=== PATIENT | female | born 1955 | race African-American/Black ===

== ENCOUNTER 2017-04-20 09:44 | Inpatient (IN) | payer OTHER, MEDICARE ==
[~2017-04-20] VITALS: Ht 160 cm; Wt 93.4 kg
[~2017-04-20 09:44] MED LIST: 1-ME1LIQ OR; ALBU17I INH; FOSI20TA PO; OMEP20TA OR; SIMV40; VENTAER INH
[2017-04-20] MEDS ORDERED: CHLORHEXIDINE GLUCONATE 4% SOLN 120 ML BTL TOPICAL SCH (10:30)
[2017-04-20] MEDS ORDERED: POVIDONE IODINE 5% (ANTISEPSIS KIT) 4 APPLICATIONS EACH NARE PRN (10:30)
[2017-04-20] MEDS ORDERED: METOPROLOL TARTRATE 25 MG TAB PO PRN (10:30)
[2017-04-20] MEDS ORDERED: VANCOMYCIN 1000 MG/NS 250 ML (for <70 kg) IV SCH ×2 (10:30)
[2017-04-20] MEDS ORDERED: ceFAZolin 2 GM PREMIX 50 ML IV SCH (10:30)
[2017-04-20] MEDS ORDERED: LACTATED RINGER'S 1000 ML IV PRN (10:30)
[2017-04-20] MEDS ORDERED: CHLORHEXIDINE GLUCONATE 2 % 1 PACK (2 CLOTHS) TOPICAL PRN (10:30)
[2017-04-20] MEDS ORDERED: SODIUM CHLORID 0.9% 500 ML IV PRN (10:30)
[2017-04-20] MEDS ORDERED: ROPIVACAINE PERI-ARTICULAR INJECTION. P-ARTICULR SCH ×5 (11:00)
[2017-04-20] MEDS ORDERED: MELO7.5T27 PO (11:06)
[2017-04-20] MEDS ORDERED: IBUP-1129 PO (11:06)
[2017-04-20] MEDS ORDERED: MAGN400T24 PO (11:06)
[2017-04-20] MEDS ORDERED: OXYB5TAB8 PO (11:06)
[2017-04-20] MEDS ORDERED: PRED5TAB PO (11:06)
[2017-04-20] MEDS ORDERED: LACTATED RINGER'S 1000 ML INJ 1,000 ML IV ONE (12:00)
[2017-04-20] MEDS ORDERED: ONDANSETRON HCL 4 MG/2 ML VIAL IV ONE (12:00)
[2017-04-20] MEDS ORDERED: ceFAZolin INJ 1,000 MG VIAL IV ONE (12:00)
[2017-04-20] MEDS ORDERED: DEXAMETHASONE SOD PHOS 4 MG/ML VIAL IV ONE (12:00)
[2017-04-20] MEDS ORDERED: GLYCOPYRROLATE 1 MG/5 ML SYRINGE IV PUSH ONE (12:00)
[2017-04-20] MEDS ORDERED: NEOSTIGMINE 5 MG/5 ML SYRINGE IV PUSH ONE (12:00)
[2017-04-20] MEDS ORDERED: PROPOFOL 200 MG/20 ML AMP IV ONE (12:00)
[2017-04-20] MEDS ORDERED: LIDOCAINE HCL 1% PF 5 ML SYRINGE OTHER ONE (12:00)
[2017-04-20] MEDS ORDERED: ROCURONIUM INJ 50 MG/5 ML SYRINGE IV PUSH ONE (12:00)
[2017-04-20] MEDS ORDERED: GENTAMICIN SULFATE 80 MG/2 ML VIAL ONE (12:11)
[2017-04-20] MEDS ORDERED: MORPHINE SULFATE 4 MG/ML INJ ONE (12:24)
[2017-04-20] MEDS ORDERED: fentaNYL CITRATE 250 MCG/5 ML AMP ONE (12:24)
[2017-04-20] MEDS ORDERED: ACETAMINOPHEN 1000 MG/100 ML 100 ML IV ONE ×2 (12:24→20:00)
[2017-04-20] MEDS ORDERED: BUPIVACAINE HCL PF 0.5% 30 ML VIAL ONE (12:37)
[2017-04-20] MEDS ORDERED: MIDAZOLAM HCL 2 MG/2 ML VIAL ONE (12:38)
[2017-04-20] MEDS ORDERED: APREPITANT 40 MG CAP ONE (12:58)
[2017-04-20] MEDS: LACTATED RINGER'S 1000 ML INJ 1,000 ML IV SCH (15:06)
[2017-04-20] MEDS ORDERED: DO NOT ADM ANY ANTICOAGULANT DRUGS PRN (15:08)
--- NOTE | 2017-04-20 15:08 | HHI.PR ---
Immediate Post Op Note Procedure Date: Apr 20, 2017 Pre Op Diagnosis: R Knee severe OA,RA,genu valgus deformity Post Op Diagnosis: Same Surgeon: Russ Bloom MD Razor Grinder(s): Radha Spears PA-C Procedure: R TKR Complications: None Specimen(s) removed: None Estimated blood loss: 50cc Anesthesia: General, Regional Block, Local Drains: Hemovac Patient to: PACU Patient Condition: Good Implant/Devices: SEE IMPLANT LOG (if applicable) Date/Time of Procedure: SEE SURGICAL CARE RECORD Russ Bloom MD Apr 20, 2017 15:08
[2017-04-20] MEDS ORDERED: WALKER WHEELS/F1 MIS (15:14)
[2017-04-20] MEDS ORDERED: CPMMACHINE (15:14)
[2017-04-20] MEDS ORDERED: oxyCODONE/ACETAMINOPHEN 7.5 MG/325 MG TAB PO PRN ×2 (15:15)
[2017-04-20] MEDS ORDERED: ALUMINUM/MAGNESIUM/SIMETH 30 ML CUP PO PRN (15:15)
[2017-04-20] MEDS ORDERED: Post-op Orders (for Pharmacy) XX ONE (15:15)
--- NOTE | 2017-04-20 16:30 | MP ---
cc: Russ Bloom MD DATE OF OPERATION: 04/20/2017 PREOPERATIVE DIAGNOSIS: Right knee severe tricompartment osteoarthritis, genu valgus deformity. POSTOPERATIVE DIAGNOSIS: Right knee severe tricompartment osteoarthritis, genu valgus deformity. PROCEDURE: Right total knee arthroplasty. SURGEON: Russ Bloom MD PIPE SUPERVISOR: Radha Spears PA-C ANESTHESIA: General, regional block. COMPLICATIONS: None. ESTIMATED BLOOD LOSS: 50 mL. DRAINS: 2. TOURNIQUET TIME: 54 minutes at 275 mmHg. CONDITION: Stable. PLAN OF ACTIVITY: Per orders. PROCEDURE: My kindergarten teacher assistant, Radha Spears, was present for the entire surgical case. She was medically necessary for the entire case because of the complexity of the case and to facilitate the performance of the procedure and with the retractors, trial implants, permanent implants including bone cement. Patient brought in the operating room, had satisfactory anesthesia by Dr. Alvarado, department of anesthesia. The right lower extremity was prepped and draped in usual sterile manner. The extremity was exsanguinated by elevation and tourniquet placed to 275 mmHg. A small anterior exposure to the was made. Paramedian capsulotomy was performed. Patient was found to have significant synovitis to the knee with severe tricompartment osteoarthritis. The remaining portions of the medial and lateral meniscus were removed. Prepatellar fat pad was excised. The anterior cruciate ligament was resected and the posterior cruciate ligament was preserved. Using the Biomet Phat[employer]ise[employer] total knee arthroplasty system, IM guide was used for the distal femur cuts. This was 5 degrees of valgus to accept a 62.5 mm femoral component. Extramedullary guide was used for the tibia and this was to accept a 71 mm tibial component. The undersurface of the patella was removed and this was to accept a 31 mm 3-pronged patellar prosthesis. Patient found to have satisfactory balance in both flexion and extension with a 12 mm insert. All trial components were removed. Preparation for cementing was made. This was 2 packages of Palacos bone cement. First, the tibial component was cemented, followed by the femoral component, then the patellar component. When all excess bone cement was removed, the bone cement was allowed to harden for 11 minutes. A 12 x 71 mm polyethylene plastic was used, in which it was "cupped". Again, patient was found to have excellent range of motion range of motion and satisfactory stability of both flexion and extension gaps. The knee was irrigated with 3000 mL of sterile saline antibiotic solution. Wound itself was dry. The tourniquet was deflated. All bleeders were coagulated. The knee was irrigated with local anesthesia prior to the tourniquet coming down. The medication was provided by the department of pharmacy. The lateral retinacular release was performed. The patella was found to track well within the patellofemoral compartment with the "no thumbs technique". The extension mechanism was repaired using multiple interrupted #2 Ti-Cron, subcutaneous tissue later with 0 Vicryl and 3-0 Vicryl. Skin was approximated with skin jabier. Sterile dressings were applied. Patient tolerated the procedure well, went to recovery room in stable and satisfactory condition. MD KENYATTA Cano/INÉS , 02:55 PM , 04:29 PM BRANDI
--- NOTE | 2017-04-20 17:00 | RADRPT ---
EXAM DATE/TIME: 04/20/2017 15:19 [place] COMPARISON: No previous studies available for comparison. INDICATIONS : Post op right knee. MEDICAL HISTORY : None. SURGICAL HISTORY : None. ENCOUNTER: Initial ACUITY: 1 day PAIN SCORE: Non-responsive. LOCATION: Right knee. FINDINGS: Total knee arthroplasty is present. Hardware is intact. Alignment is anatomic. Surgical drains are no bravo. Skin jabier are present ventrally. CONCLUSION: Satisfactory post right TKA Yogesh Wilson MD on April 20, 2017 at 16:59 Board Certified Radiologist. This report was verified electronically.
[2017-04-20 18:00] VITALS: BP 127/68; PULSE 72; RESP 18; TEMP 96.6; O2SAT 96
[2017-04-20] MEDS ORDERED: MORPHINE SULFATE 8 MG/ML INJ IV PUSH PRN (18:00)
[2017-04-20 20:00] VITALS: BP 129/75; PULSE 80; RESP 15; TEMP 97.5; O2SAT 94
[2017-04-20] MEDS ORDERED: ZOLPIDEM TARTRATE 5 MG TAB PO PRN (21:00)
[2017-04-20] MEDS: LISINOPRIL 20 MG TAB PO SCH (21:11)
[2017-04-20] MEDS: predniSONE 5 MG TAB PO SCH (21:11)
[2017-04-20] MEDS: OXYBUTYNIN CHLORIDE 5 MG TAB PO SCH (21:11)
[2017-04-20] MEDS: ASPIRIN EC 81 MG TABEC PO SCH (21:19)
[2017-04-21] VITALS: BP 106/66; PULSE 73; RESP 15; TEMP 97.8; O2SAT 97
[2017-04-21] MEDS: LACTATED RINGER'S 1000 ML INJ 1,000 ML IV SCH (03:36)
[2017-04-21 06:05] LABS: HEMATOCRIT 30.4 % (35.0-46.0); HEMOGLOBIN 10.2 GM/DL (11.6-15.3)
--- NOTE | 2017-04-21 07:01 | PD.ORT.PN ---
Subjective Subjective Remarks POD#1 R TKR No sob,chest pain No c/o pain Explained operative findings to patient and answered multiple questions Objective Vitals Vital Signs Date Time Temp Pulse Resp B/P (MAP) Pulse Ox O2 Delivery O2 Flow Rate FiO2 04/21/17 00:00 97.8 73 15 106/66 (79) 97 04/20/17 21:12 18 04/20/17 20:00 97.5 80 15 129/75 (93) 94 04/20/17 18:00 96.6 72 18 127/68 (87) 96 04/20/17 17:30 97.6 72 20 146/69 (94) 95 Nasal Cannula 2 04/20/17 17:00 72 20 146/69 (94) 95 Nasal Cannula 2 04/20/17 16:00 64 20 148/80 (102) 95 Nasal Cannula 2 04/20/17 15:45 64 20 148/82 (104) 100 Nasal Cannula 2 04/20/17 15:30 67 20 152/75 (100) 100 Nasal Cannula 2 04/20/17 15:15 67 20 157/75 (102) 100 Nasal Cannula 2 04/20/17 15:07 97.6 74 20 143/77 (99) 100 Nasal Cannula 2 04/20/17 11:47 100 Nasal Cannula 2 04/20/17 10:47 97.7 68 18 142/68 (92) 100 I/O 04/20/17 04/20/17 04/20/17 04/21/17 04/21/17 04/21/17 07:00 15:00 23:00 07:00 15:00 23:00 Intake Total 2600 ml 100 ml Output Total 3400 ml 130 ml Balance -800 ml -30 ml Intake Oral 500 ml IV Total 2100 ml 100 ml Output Urine Total 350 ml Drainage Total 130 ml Estimated Blood Loss 50 ml Other 3000 ml # Voids 3 Result Diagram: 04/21/17 0528 Imaging Last 24 hours Impressions Knee X-Ray 04/20/17 1506 Signed Impressions: Service Date/Time: Thursday, April 20, 2017 15:19 - CONCLUSION: Satisfactory post right TKA Yogesh Wilson MD Objective Remarks N/V intact Dressings dry Neg marco a's;no calf tenderness Assessment & Plan Assessment and Plan Ortho stable PT,Rehab Aspirin EC 81 mg BID x 4 weeks TEDS for DVT prophylaxsis D/C to SNF tomorrow Russ Bloom MD Apr 21, 2017 07:01
[2017-04-21] MEDS: LISINOPRIL 20 MG TAB PO SCH ×2 (07:30→20:46)
[2017-04-21] MEDS: predniSONE 5 MG TAB PO SCH ×2 (07:30→20:46)
[2017-04-21] MEDS: ASPIRIN EC 81 MG TABEC PO SCH ×2 (07:30→20:46)
[2017-04-21] MEDS: PANTOPRAZOLE SOD 20 MG DELAYED RELEASE TAB PO SCH (07:30)
[2017-04-21] MEDS: OXYBUTYNIN CHLORIDE 5 MG TAB PO SCH ×2 (07:30→20:46)
[2017-04-21] MEDS: PRAVASTATIN SOD 80 MG TAB PO SCH (07:30)
[2017-04-21 08:00] VITALS: BP 108/60; PULSE 71; RESP 17; TEMP 96.8; O2SAT 97
[2017-04-21 08:25] VITALS: O2SAT 98
[2017-04-21] MEDS ORDERED: [UNRECOGNIZED DRUG - OTHER] SCH (09:00)
[2017-04-21] MEDS ORDERED: METHYL SCH (09:00)
[2017-04-21] MEDS: MAGNESIUM OXIDE 400 MG TAB PO SCH (11:57)
[2017-04-21 12:04] VITALS: BP 108/67; PULSE 93; RESP 18; TEMP 98.3; O2SAT 97
[2017-04-21 16:00] VITALS: BP 114/82; PULSE 98; RESP 19; TEMP 97.2; O2SAT 99
[2017-04-21 20:00] VITALS: BP 129/82; PULSE 86; RESP 20; TEMP 98.4; O2SAT 97
[2017-04-22] VITALS (8 sets, daily range): BP systolic 121–155; BP diastolic 72–98; PULSE 77–90; RESP 16–18; TEMP 95.6–100.4; O2SAT 95–99
[2017-04-22] MEDS: LACTATED RINGER'S 1000 ML INJ 1,000 ML IV SCH ×2 (04:36→17:06)
--- NOTE | 2017-04-22 07:37 | PD.ORT.PN ---
Subjective Subjective Remarks pt complains of post op knee soreness Objective Vitals Vital Signs Date Time Temp Pulse Resp B/P (MAP) Pulse Ox O2 Delivery O2 Flow Rate FiO2 04/22/17 04:00 98.6 90 16 139/74 (95) 95 04/22/17 00:00 98.6 90 17 121/72 (88) 95 04/21/17 20:00 98.4 86 20 129/82 (98) 97 04/21/17 16:00 97.2 98 19 114/82 (93) 99 04/21/17 12:04 98.3 93 18 108/67 (81) 97 04/21/17 08:25 98 21 04/21/17 08:00 96.8 71 17 108/60 (76) 97 I/O 04/21/17 04/21/17 04/21/17 04/22/17 04/22/17 04/22/17 07:00 15:00 23:00 07:00 15:00 23:00 Intake Total 400 ml 1200 ml 480 ml Output Total 130 ml 5 ml 60 ml Balance 270 ml 1195 ml -60 ml 480 ml Intake Oral 300 ml 1200 ml 480 ml IV Total 100 ml Output Urine Total 5 ml Drainage Total 130 ml 60 ml # Voids 4 2 # Bowel Movements 0 0 Result Diagram: 04/21/17 0528 Imaging Last 24 hours Impressions Knee X-Ray 04/20/17 1506 Signed Impressions: Service Date/Time: Thursday, April 20, 2017 15:19 - CONCLUSION: Satisfactory post right TKA Yogesh Wilson MD Objective Remarks right knee dressings dry and intact N/V intact Neg marco a's, no calf tenderness Assessment & Plan Assessment and Plan POD # 2 s/p R TKA Ortho stable PT,Rehab Aspirin EC 81 mg BID x 4 weeks TEDS for DVT prophylaxsis bowel regimen D/C to SNF today Radha Spears Apr 22, 2017 07:37
[2017-04-22] MEDS: OXYBUTYNIN CHLORIDE 5 MG TAB PO SCH ×2 (08:52→21:02)
[2017-04-22] MEDS: predniSONE 5 MG TAB PO SCH ×2 (08:52→21:02)
[2017-04-22] MEDS: ASPIRIN EC 81 MG TABEC PO SCH ×2 (08:52→21:02)
[2017-04-22] MEDS: PRAVASTATIN SOD 80 MG TAB PO SCH (08:52)
[2017-04-22] MEDS: LISINOPRIL 20 MG TAB PO SCH ×2 (08:52→21:02)
[2017-04-22] MEDS: PANTOPRAZOLE SOD 20 MG DELAYED RELEASE TAB PO SCH (08:52)
[2017-04-22] MEDS: MAGNESIUM HYDROXIDE SUSP 30 ML CUP PO SCH ×2 (08:53→21:02)
[2017-04-22] MEDS: MAGNESIUM OXIDE 400 MG TAB PO SCH (10:57)
[2017-04-22] MEDS: ACETAMINOPHEN 500 MG CPLT PO PRN (22:19)
[2017-04-23] MEDS: LACTATED RINGER'S 1000 ML INJ 1,000 ML IV SCH (05:36)
[2017-04-23] MEDS: ACETAMINOPHEN 500 MG CPLT PO PRN ×2 (05:43→11:23)
[2017-04-23 08:00] VITALS: BP 118/71; PULSE 80; RESP 17; TEMP 97.2; O2SAT 98
[2017-04-23] MEDS: PANTOPRAZOLE SOD 20 MG DELAYED RELEASE TAB PO SCH (08:09)
[2017-04-23] MEDS: ASPIRIN EC 81 MG TABEC PO SCH (08:09)
[2017-04-23] MEDS: predniSONE 5 MG TAB PO SCH (08:09)
[2017-04-23] MEDS: PRAVASTATIN SOD 80 MG TAB PO SCH (08:09)
[2017-04-23] MEDS: OXYBUTYNIN CHLORIDE 5 MG TAB PO SCH (08:09)
[2017-04-23] MEDS: LISINOPRIL 20 MG TAB PO SCH (08:09)
[2017-04-23] MEDS: MAGNESIUM HYDROXIDE SUSP 30 ML CUP PO SCH (08:10)
[2017-04-23] MEDS ORDERED: LACTULOSE SYRUP 20 GM/30 ML CUP PO ONE (08:30)
[2017-04-23] MEDS: MAGNESIUM OXIDE 400 MG TAB PO SCH (11:22)
[2017-04-23] MEDS ORDERED: PERC7.5T13 PO (11:43)
[2017-04-23] MEDS ORDERED: ASPI-516 CHEW (11:44)
[2017-04-23 12:06] VITALS: BP 123/73; PULSE 80; RESP 18; TEMP 97.9; O2SAT 98
[2017-04-23 12:30] VITALS: RESP 18
--- NOTE | 2017-04-23 13:59 | PD.ORT.PN ---
Subjective Subjective Remarks POD#3 R TKR patient doing well ready to be discharged to [facility] today Objective Vitals Vital Signs Date Time Temp Pulse Resp B/P (MAP) Pulse Ox O2 Delivery O2 Flow Rate FiO2 04/23/17 12:30 18 04/23/17 12:06 97.9 80 18 123/73 (90) 98 04/23/17 08:00 97.2 80 17 118/71 (87) 98 04/22/17 23:20 98.5 88 18 150/79 (102) 97 04/22/17 22:17 142/81 (101) 04/22/17 20:50 100.4 88 18 155/98 (117) 95 04/22/17 16:00 97.8 84 17 142/80 (100) 97 I/O 04/22/17 04/22/17 04/22/17 04/23/17 04/23/17 04/23/17 07:00 15:00 23:00 07:00 15:00 23:00 Intake Total 480 ml 480 ml 480 ml 240 ml Balance 480 ml 480 ml 480 ml 240 ml Intake Oral 480 ml 480 ml 480 ml 240 ml # Voids 2 4 3 2 # Bowel Movements 0 0 0 0 Result Diagram: 04/21/17 0528 Imaging Last 24 hours Impressions Knee X-Ray 04/20/17 1506 Signed Impressions: Service Date/Time: Thursday, April 20, 2017 15:19 - CONCLUSION: Satisfactory post right TKA Yogesh Wilson MD Objective Remarks right knee dressings dry and intact N/V intact Neg marco a's, no calf tenderness Assessment & Plan Assessment and Plan POD # 3 s/p R TKA Ortho stable PT,Rehab Aspirin EC 81 mg BID x 4 weeks TEDS for DVT prophylaxsis D/C to [facility] today Russ Bloom MD Apr 23, 2017 13:59
== END 2017-04-23 17:42 | DRG 470 ==
LOC: HSDI 09:44 → N06B 17:54
PROVIDERS: ADMIT Orthopaedic Surgery Orthopaedic Surgery of the Spine; ATTEND Orthopaedic Surgery Orthopaedic Surgery of the Spine
PROC: 3E0T3BZ Introduction of Anesthetic Agent into Peripheral Nerves and Plexi, Percutaneous Approach (ICD-10-PCS; 2017-04-20)
PROC: 0SRC0J9 Replacement of Right Knee Joint with Synthetic Substitute, Cemented, Open Approach (ICD-10-PCS; principal; 2017-04-20 13:02)
DX: M17.11 Unilateral primary osteoarthritis, right knee (principal); M06.9 Rheumatoid arthritis, unspecified; E78.5 Hyperlipidemia, unspecified; M21.061 Valgus deformity, not elsewhere classified, right knee; M65.861 Other synovitis and tenosynovitis, right lower leg; K21.9 Gastro-esophageal reflux disease without esophagitis; J45.909 Unspecified asthma, uncomplicated
CPT/HCPCS: 73560; 85014; 85018; 86850; 86900; 86901; 86920; 94150; C1776; J0131; J0690; J0735; J1100; J1580; J1885; J2250; J2270; J2405; J2710; J2795; J3010; J3370; J7050; J7120; J7512; J8501; L1830

== ENCOUNTER 2017-11-09 09:51 | Inpatient (IN) ==
[2017-11-09] MEDS ORDERED: Metoprolol Tartrate 25 MG Tablet PO ONE (10:33)
[2017-11-09] MEDS ORDERED: Chlorhexidine Gluconate 2% 1 Pack (2 Cloths) TOPICAL ONE (10:33)
[2017-11-09] MEDS ORDERED: Sodium Chlor 0.9% Inj 73.07 ML, Ropivacaine 0.5% PF Inj 24.63 ML, Ketorolac Inj 30 MG, ... P-ARTICULR SCH ×5 (10:45)
[2017-11-09] MEDS ORDERED: Chlorhexidine 4% Topical 120 APPLIC/120 ML Bottle TOPICAL SCH (10:45)
[2017-11-09] MEDS ORDERED: Vancomycin Inj 1,000 MG in Sodium Chlor 0.9% Inj 250 ML IV.SIG SCH (11:00)
[2017-11-09] MEDS ORDERED: ceFAZolin 2 GM Premix Inj 2 GM/50 ML PIGGYBACK IV.SIG SCH (11:00)
[2017-11-09] MEDS ORDERED: Sodium Chlor 0.9% Inj 500 ML IV.SIG SCH (11:00)
[2017-11-09] MEDS ORDERED: Bupivacaine/Dextrose 0.75% Inj 2 ML Ampul ONE (11:10)
[2017-11-09] MEDS ORDERED: Bupivacaine Liposomal PF 1.3% Inj 20 ML Vial ONE (11:36)
[2017-11-09] MEDS ORDERED: fentaNYL Citrate Inj 100 MCG/2 ML Ampul ONE ×2 (11:45→15:07)
[2017-11-09] MEDS ORDERED: fentaNYL Citrate Inj 100 MCG/2 ML Ampul IV.PUSH ONE (12:00)
[2017-11-09] MEDS ORDERED: Lidocaine PF 1% Inj 5 ML Syringe OTHER ONE (13:00)
[2017-11-09] MEDS ORDERED: Neostigmine Inj 5 MG/5 ML Syringe IV.PUSH ONE (13:00)
[2017-11-09] MEDS ORDERED: Glycopyrrolate Inj 1 MG/5 ML Syringe IV.PUSH ONE (13:00)
[2017-11-09] MEDS ORDERED: Labetalol HCl Inj 100 MG/20 ML Vial IV.CONT ONE (13:00)
[2017-11-09] MEDS ORDERED: Acetaminophen/Codeine 300/30 MG Tablet PO PRN (15:00)
[2017-11-09] MEDS ORDERED: Post-op Orders (for Pharmacy) OTHER STA (15:00)
[2017-11-09] MEDS ORDERED: Bisacodyl 10 MG Supp RECTAL PRN (15:00)
[2017-11-09] MEDS ORDERED: Morphine Inj 4 MG/ML Vial IV.PUSH PRN (15:00)
[2017-11-09] MEDS ORDERED: Zolpidem Tartrate 5 MG Tablet PO PRN (15:00)
--- NOTE | 2017-11-09 15:55 | XR ---
EXAM DATE: 11/09/2017 3:49 PM EDT AGE/SEX: 61 years / Female INDICATIONS: Post left knee arthroplasty CLINICAL DATA: This is the patient's initial encounter. Patient reports that signs and symptoms have been present for 1 day and indicates a pain score of 0/10. MEDICAL/SURGICAL HISTORY: Arthritis. . Right total knee arthroplasty COMPARISON: [facility], KNEE RIGHT [facility] (1 OR 2 VWS), 04/20/2017. . FINDINGS: The patient is status post left total knee arthroplasty. The prosthesis appears to be in good positio n. There is no fracture or dislocation. CONCLUSION: Status post left total knee arthroplasty with prosthesis in good position. Electronically signed by: Juanito Buckner MD 11/09/2017 3:54 PM EDT
--- NOTE | 2017-11-09 16:14 | MP ---
cc: Russ Bloom MD,Karla Weiss,Dr. Rosemarie MIGUEL DATE OF OPERATION: 11/09/2017 DATE OF PROCEDURE: 11/09/2017 PREOPERATIVE DIAGNOSES: 1. Left knee severe tricompartment osteoarthritis. 2. Rheumatoid arthritis. 3. Status post right total knee arthroplasty 04/20/2017. POSTOPERATIVE DIAGNOSES: 1. Left knee severe tricompartment osteoarthritis. 2. Rheumatoid arthritis. 3. Status post right total knee arthroplasty 04/20/2017. PROCEDURE PERFORMED: Left total knee arthroplasty - cemented Biomet-Vanguard. SURGEON: Russ Bloom MD TRAINING AND DEVELOPMENT PROJECT LEADER: Radha Spears PA-C. TOURNIQUET TIME: 59 minutes. ESTIMATED BLOOD LOSS: 100 mL DRAINS: Two. COMPLICATIONS: None. PLAN: Activities per orders. My assistant teacher primary Radha Spears PA-C was present for the entire surgical case. She was medically necessary for the entire case because of the complexity of the case and to facilitate the performance of the procedure. The REFINERY OPERATOR was at the back table, was not of the skill set for this case to manipulate the instruments, e.g. multiple soft tissue contractures, trial implants and permanent implants. PROCEDURE IN DETAIL: The patient brought in the operating room and had satisfactory general anesthesia by the Department of Anesthesia. The left lower extremity was prepped and draped in the usual manner. The extremity was elevated by exsanguination, tourniquet was inflated at 250 mmHg. Small anterior exposure knee was made. Paramedian capsulotomy was performed. The patient was found to have severe osteoarthritis and rheumatoid arthritis involving all 3 compartments of the knee. The patient was found to have also expected moderate degree of synovitis secondary to rheumatoid arthritis. The remaining portion of medial and lateral meniscus was removed, the anterior cruciate ligament was removed. The posterior cruciate ligament was deferred. The prepatellar fat pad was surgically excised. Using the Biomet-Vanguard total knee arthroplasty system, IM guide was used in the distal femur. This was a 7-degree valgus cut to accept a 62.5 mm femoral component. Extramedullary guide was used for the tibia and this was done to accept a 71 mm tibial component. The trial reduction was made with the 12 mm insert, found to be in satisfactory balance of the knee in flexion and extension. Undersurface of the patella was removed to accept a 31 mm 3-pronged patellar prosthesis. All trial components were removed and preparation for cementing was made. Local block within the knee was 100 mL of local anesthetic provided by Department of Pharmacy. The knee was then irrigated with copious amounts of sterile saline antibiotic solution and preparation for cementing was made. First, the tibial component was cemented, which was a 71 mm tibial component, then the femoral component was cemented which was a 62.5 mm component. A trial 12 x 71 polyethylene plastic was used. Undersurface of patella, a 31 mm 3-pronged prosthesis was used. The bone cement was allowed to harden for 11 minutes. All excess bone cement was removed. A 12 mm x 71 mm "lipped" tibial prosthesis was then assembled onto the tibial tray; appropriate locking mechanism with the clip was performed. Tourniquet deflated. Wound was irrigated with 4000 mL of sterile saline antibiotic solution. All bleeders were anticoagulated. Wound closed over two 1/8-inch Hemovac drains. The capsule and extensor mechanism was repaired using #2-Ti-Cron suture. Subcuticular layers with 0-Vicryl and 2-0 Vicryl. The patient did have a lateral retinacular release prior to the closure of the capsule and the patella was found to groove well within the patellofemoral compartment with a "no thumb technique." Subcuticular layers with 0-Vicryl and 2-0 Vicryl. Skin was approximated with skin jabier. Sterile dressing applied. The patient tolerated the procedure well and arrived in the recovery room in stable and satisfactory condition. MD KENYATTA Cano/chinmay , 02:58 PM , 03:13 PM
[2017-11-09] MEDS ORDERED: *morphine SULFATE 4 MG/ML PERIprocedure ONLY ONE (17:26)
[2017-11-09] MEDS: Senna/Docusate Sodium 8.6/50 MG Tablet PO SCH (20:38)
[2017-11-10] MEDS: Acetaminophen/Codeine 300/30 MG Tablet PO PRN ×3 (05:47→19:05)
[2017-11-10 07:04] LABS: Hematocrit 27.1 % (35.0-46.0); Hemoglobin 8.9 gm/dL (11.6-15.3)
--- NOTE | 2017-11-10 07:13 | P.PNOP ---
Subjective Interval history: POD# 1 L TKR No SOB;no chest pain Explained operative findings to patient;answered mulitple questions Physical Exam Vital signs: Vital Signs 11/09/17 10:45 11/09/17 12:24 11/09/17 15:02 Temperature 98.2 F 97.9 F Pulse Rate 82 72 81 Respiratory Rate 20 2 L Blood Pressure 147/74 H 163/80 H Pulse Oximetry 99 98 100 11/09/17 15:15 11/09/17 15:30 11/09/17 15:45 Temperature Pulse Rate 73 68 63 Respiratory Rate 19 19 19 Blood Pressure 149/77 H 150/81 H 146/78 H Pulse Oximetry 100 100 100 11/09/17 16:00 11/09/17 16:15 11/09/17 17:00 Temperature Pulse Rate 73 69 69 Respiratory Rate 19 19 19 Blood Pressure 162/72 H 153/73 H 153/73 H Pulse Oximetry 100 100 100 11/09/17 20:00 11/10/17 00:00 11/10/17 04:00 Temperature 97.9 F 98.1 F 98.1 F Pulse Rate 82 95 H 86 Respiratory Rate 16 16 17 Blood Pressure 128/65 126/62 112/66 Pulse Oximetry 94 L 93 L 93 L Intake & Output 11/09/17 11/09/17 11/10/17 06:59 18:59 06:59 Intake Total 1300 / 1300 200 / 200 Output Total 400 / 400 / 20 Balance 900 / 900 180 / 180 Weight 90 kg 90 kg Intake: IV 1300 / 1300 200 / 200 LR 1000 mL Inj 1,000 ML @ 30 1000 / 1000 mls/hr IV.SIG .Q24H [facility] Rx#: [id number] Vancomycin Inj 1,000 MG In NS 250 / 250 Inj 250 ML @ 250 mls/hr IV.SIG TRAINING PROGRAM DEVELOPER [facility] Rx#:[id number] Ancef 2 GM Premix Inj 2 gm In 50 / 50 50 ml @ 100 mls/hr IV.SIG TRAINING PROGRAM DEVELOPER [facility] Rx#:[id number] Ancef Inj 1,000 MG In NS Inj 200 / 200 100 ML @ 200 mls/hr IV.SIG Q6H [facility] Rx#:[id number] Output: Urine 300 / 300 Estimated Blood Loss 100 / 100 Wound Drainage # 1 Left Knee Hemovac Other: # Voids 1 Date of Last Bowel Movement 11/07/17 Weight On Admission 90 kg Narrative: N/V intact Negative marco a's sign;no calf tenderness Results - Labs CBC & Chem 7: 11/10/17 05:38 Laboratory Results - last 24 hr 11/09/17 10:50 Blood Type A Positive Antibody Screen Negative MTS Gel Crossmatch See Detail - Imaging Impressions Knee X-Ray 11/09/17 14:59 CONCLUSION: Status post left total knee arthroplasty with prosthesis in good position. Assessment and Plan - Assessment and Plan Ortho stable PT/Rehab TEDS,Aspirin 81mg BID x 4 weeks for DVT/PE prophylaxsis Discharge to SNF tomorrow for continued Rehab Celebrex 200mg BID,tylenol#3 prn pain
[2017-11-10] MEDS ORDERED: AZO BLADDER CONTROL PO SCH (09:00)
[2017-11-10] MEDS: Celecoxib 200 MG Capsule PO SCH (09:21)
[2017-11-10] MEDS: Senna/Docusate Sodium 8.6/50 MG Tablet PO SCH ×2 (09:22→20:23)
[2017-11-11 06:47] LABS: Hematocrit 25.2 % (35.0-46.0); Hemoglobin 8.4 gm/dL (11.6-15.3)
--- NOTE | 2017-11-11 07:53 | P.PNOP ---
Subjective Interval history: pt has post operative left knee pain also complains of headache and sore throat Physical Exam Vital signs: Vital Signs 11/10/17 08:00 11/10/17 12:00 11/10/17 16:00 Temperature 97.9 F 97.9 F 97.8 F Pulse Rate 75 76 79 Respiratory Rate 18 19 19 Blood Pressure 124/61 122/63 113/65 Pulse Oximetry 95 97 96 11/10/17 20:00 11/11/17 00:00 11/11/17 04:00 Temperature 97.6 F 97.6 F 97.9 F Pulse Rate 71 83 72 Respiratory Rate 16 16 16 Blood Pressure 125/58 L 110/54 L 111/56 L Pulse Oximetry 97 95 96 Intake & Output 11/10/17 11/11/17 11/11/17 18:59 06:59 18:59 Intake Total 100 / 100 Balance 100 / 100 Weight 90 kg Intake: IV 100 / 100 Ancef Inj 1,000 MG In NS Inj 100 / 100 100 ML @ 200 mls/hr IV.SIG Q6H [facility] Rx#:[id number] Other: # Voids 3 Date of Last Bowel Movement 11/07/17 Narrative: left knee dressing dry and intact N/V intact Negative marco a's sign;no calf tenderness Results - Labs CBC & Chem 7: 11/11/17 05:26 Laboratory Results - last 24 hr 11/11/17 05:26 Hgb 8.4 L Hct 25.2 L Assessment and Plan - Assessment and Plan POD # 2 s/p L TKA Ortho stable PT/Rehab TEDS,Aspirin 81mg BID x 4 weeks for DVT/PE prophylaxsis Discharge to SNF either today or tomorrow - still awaiting facility acceptance iron 325 mg bid and resume her magnesium
[2017-11-11] MEDS: Senna/Docusate Sodium 8.6/50 MG Tablet PO SCH (08:42)
[2017-11-11] MEDS: Celecoxib 200 MG Capsule PO SCH (08:42)
[2017-11-11] MEDS ORDERED: Ferrous Sulfate 325 MG Tablet PO SCH (09:00)
[2017-11-11 09:08] VITALS: RESP 18
[2017-11-11 13:56] VITALS: O2SAT 98
[2017-11-11] MEDS: Acetaminophen/Codeine 300/30 MG Tablet PO PRN (16:01)
[2017-11-11 16:35] VITALS: BP 113/56; PULSE 83; TEMP 98.4
== END 2017-11-11 18:36 ==
LOC: HSDI 09:51 → N06 18:17
PROVIDERS: ADMIT Orthopaedic Surgery Orthopaedic Surgery of the Spine; ATTEND Orthopaedic Surgery Orthopaedic Surgery of the Spine